=== PATIENT | female | born 1995 | race Caucasian/White ===

== ENCOUNTER → 2017-06-30 | Outpatient (CLI) | payer OTHER ==
--- NOTE | 2017-06-30 11:36 | DIAGNOSTIC IMAGING REPORT ---
LEFT UPPER EXTREMITY VENOUS DOPPLER HISTORY: Left arm pain. THROMBOSIS COMPARISON STUDY: None. FINDINGS: The left internal jugular vein is patent. There is normal flow within the left subclavian vein. There is normal flow and compressibility within the left axillary, basilic, brachial, radial, ulnar, and visualized cephalic veins. Small cystic focus with a surrounding hyperechoic rim within the subcutaneous fat of the left anterior forearm. This measures 9 x 9 x 4 mm. IMPRESSION: 1. No DVT within the left upper extremity. 2. Small cystic focus with a surrounding hyperechoic rim within the subcutaneous fat of the left anterior forearm. This measures 9 x 9 x 4 mm. The appearance favors fat necrosis. Electronically signed by: Kervin Schwab M.D. 06/30/2017 11:34 AM Dictated Date/Time: 06/30/2017 11:33 AM
== END | disposition home or self-care (01) ==
LOC: C.ULTRBC 10:50
PROVIDERS: ATTEND Family Medicine
DX: I82.602 Acute embolism and thrombosis of unspecified veins of left upper extremity (principal)